=== PATIENT | female | born 1980 | race African-American/Black ===

== ENCOUNTER 2024-02-10 19:45 | Emergency (ER) | payer MEDICAID ==
[~2024-02-10] VITALS: Ht 167.6 cm; Wt 60.0 kg
[~2024-02-10 19:45] MED LIST: PROT40 PO; SUCR1TAB PO
[2024-02-10 19:51] VITALS: O2SAT 98
[2024-02-10] MEDS: HALOPERIDOL LACTATE 5MG/ML VIAL IM ONE (20:15)
[2024-02-10] MEDS: PANTOPRAZOLE SODIUM 40 MG/VIAL IV ONE (20:15)
[2024-02-10] MEDS: SODIUM CHLORIDE 0.9% 1,000 ML IV ONE (20:15)
[2024-02-10 20:29] LABS: BASOPHILS % 0.4 % (0.0-2.0); EOSINOPHILS % 1.7 % (0.0-5.0); HEMATOCRIT. 35.3 % (36.0-48.0); HEMOGLOBIN. 11.5 g/dL (12.0-16.0); LYMPHOCYTES % 10.8 % (20.0-50.0); MEAN CORPUSCULAR HEMOGLOBIN 30.5 pg (28.0-32.0); MEAN CORPUSCULAR HGB CONC 32.5 g/dL (31.0-37.0); MEAN CORPUSCULAR VOLUME 93.9 fL (81.0-99.0); MEAN PLATELET VOLUME 9.2 fl (7.4-10.4); NEUTROPHILS % 82.1 % (40.0-76.0); PLATELET 250 x1000/uL (130-400); RED BLOOD CELL COUNT 3.76 mill/uL (4.2-5.4); RED CELL DISTRIBUTION WIDTH 14.4 % (11.6-14.6); WHITE BLOOD COUNT 12.8 x1000/uL (4.5-11.0)
[2024-02-10 20:35] LABS: CARBON DIOXIDE 21 mEq/L (21-32); CHLORIDE 106 mEq/L (98-107); POTASSIUM 3.5 mEq/L (3.5-5.1); SODIUM 136 mEq/L (136-145)
[2024-02-10 20:36] LABS: CALCIUM 9.7 mg/dL (8.7-10.4)
[2024-02-10 20:40] LABS: CREATININE 0.7 mg/dL (0.6-1.0)
[2024-02-10 20:41] LABS: GLUCOSE 164 mg/dL (70-105); UREA NITROGEN BLOOD 12 mg/dL (9-23)
[2024-02-10 20:42] LABS: ALANINE AMINOTRANSFERASE 16 IU/L (10-49); ASPARTATE AMINOTRANSFERASE 23 IU/L (<34)
[2024-02-10 20:43] LABS: ALBUMIN 4.8 g/dL (3.2-4.8); BILIRUBIN TOTAL 0.3 mg/dL (0.1-1.0); HCG SCREEN NEGATIVE; PROTEIN TOTAL 7.5 g/dL (6.0-8.3)
[2024-02-10 20:50] LABS: BILIRUBIN DIRECT < 0.1 mg/dL (<=3.0)
[2024-02-10] MEDS ORDERED: PROT40 PO (22:02)
[2024-02-10] MEDS ORDERED: POLY119P2 MT (22:02)
[2024-02-10] MEDS ORDERED: SUCR1TAB PO (22:02)
[2024-02-10 22:50] VITALS: TEMP 36.61404
[2024-02-10 23:34] VITALS: BP 102/78; PULSE 60; RESP 18; O2SAT 100
== END 2024-02-10 23:35 | disposition home or self-care (01) ==
LOC: ER 19:45
DX: R10.13 Epigastric pain (principal); K59.00 Constipation, unspecified; F41.9 Anxiety disorder, unspecified; R11.10 Vomiting, unspecified; Z79.899 Other long term (current) drug therapy
CPT/HCPCS: 99285; 74176; 96360; 80076; 80048; 84703; 83690; 85025; 36415; 96372; J1630; J7030